=== PATIENT | male | born 1970 | race Caucasian/White ===

== ENCOUNTER 2020-10-18 15:33 | Inpatient (IN) ==
[2020-10-18] MEDS ORDERED: Acetaminophen 325 MG TABLET PO ONE (16:03)
[2020-10-18] MEDS ORDERED: Isovue-370 500 ML BOTTLE IVP ONE (16:03)
[2020-10-18] MEDS ORDERED: Ondansetron 4 MG/2 ML VIAL IVP ONE (16:21)
[2020-10-18] MEDS: 0.9 % Sodium Chloride 1,000 ML IVC ONE ×2 (16:24→16:53)
[2020-10-18 16:39] LABS: Eosinophils % 0.3 %; Immature Granulocytes % 0.3 % (0-4); Monocytes % 0.6 %; Red Blood Count 3.99 M/mcL (4.19-5.50)
[2020-10-18] MEDS ORDERED: 0.9 % Sodium Chloride 1,000 ML IVC ONE ×2 (16:40)
[2020-10-18] MEDS ORDERED: Vancomycin 1,750 MG/517.5 ML IV.SOLN IVPB ONE (16:40)
[2020-10-18] MEDS ORDERED: Piperacillin/Tazobactam 3.375 GM in 0.9 % Sodium Chloride Mini Bag 100 ML IVPB ONE (16:40)
[2020-10-18 16:41] LABS: Basophils % 0.3 %; Hematocrit 40.3 % (37.5-50.1); Immature Platelets 12.6 % (1.1-6.1); Lymphocytes # 0.3 K/mcL (0.6-4.6); Mean Corpuscular HGB Conc 34.7 g/dL (31.6-35.5); Mean Corpuscular Hemoglobin 35.1 pg (28.0-33.3); Mean Platelet Volume 13.1 fL (9.4-12.4); Neutrophils # 2.8 K/mcL (1.6-8.9); Segmented Neutrophils % 88.5 %; White Blood Count 3.2 K/mcL (4.3-11.1)
[2020-10-18 16:47] LABS: INR 1.6; Prothrombin Time 18.5 Seconds (9.4-12.1)
[2020-10-18 16:49] LABS: Activated Partial Thrombo Time 27.6 Seconds (26.0-36.0)
[2020-10-18 16:56] LABS: Alanine Aminotransferase 43 Units/L (7-52); Albumin 3.4 g/dL (3.5-5.7); Albumin/Globulin Ratio 1.2 (1.1-2.2); Alkaline Phosphatase 151 Units/L (34-104); Aspartate Amino Transferase 86 Units/L (13-39); BUN/Creatinine Ratio 9 (6-26); Bilirubin,Direct 1.3 mg/dL (0.0-0.2); Bilirubin,Indirect 2.4 mg/dL (0.0-1.0); Bilirubin,Total 3.7 mg/dL (0.3-1.0); Blood Urea Nitrogen 10 mg/dL (6-20); Calcium 8.3 mg/dL (8.6-10.3); Carbon Dioxide 20 mEq/L (23-29); Chloride 103 mEq/L (98-107); Globulin 2.9 g/dL (2.4-3.5); Glucose 108 mg/dL (70-105); Osmolality,Calculated 278 (280-300); Potassium 3.3 mEq/L (3.5-5.1); Sodium 134 mEq/L (136-145); Total Protein 6.3 g/dL (6.4-8.9); Troponin I < 0.03 ng/mL (< 0.04); eGFR For African Americans > 60 (> 60); eGFR For Non-African Americans > 60 (> 60)
[2020-10-18 17:00] LABS: Platelet Count 54 K/mcL (140-400)
[2020-10-18] MEDS ORDERED: 0.9 % Sodium Chloride 1,000 ML ONE (17:14)
[2020-10-18 18:12] LABS: Lipase 79 Units/L (11-82)
[2020-10-18] MEDS: 0.9 % Sodium Chloride 1,000 ML IVC SCH ×2 (18:42→22:31)
[2020-10-18 19:31] LABS: Amorphous Sediment,Urine Few per hpf (None-Few); Bilirubin,Urine Negative (Negative); Blood,Urine Small (Negative); Clarity,Urine Turbid (Clear); Color,Urine Yellow (Yellow); Glucose,Urine (UA) 70 mg/dL (Normal); Granular Casts,Urine Few per lpf (None Seen); Ketones,Urine Negative (Negative); Leukocyte Esterase,Urine Negative (Negative); Mucus,Urine Few per lpf (None-Few); Nitrite,Urine Negative (Negative); Protein,Urine >=300 mg/dL (Neg-Trace); Specific Gravity,Urine > 1.030 (1.010-1.025); Urobilinogen,Urine Normal (Normal); WBC,Urine 15-30 per hpf (0-3)
[2020-10-18] MEDS ORDERED: *HR* Norepinephrine 4 MG/4 ML VIAL IVC ONE (19:37)
[2020-10-18] MEDS ORDERED: 0.9 % Sodium Chloride 250 ML ONE (19:37)
[2020-10-18] MEDS ORDERED: Norepinephrine 4 MG/254 ML IV.SOLN IVC SCH (19:45)
[2020-10-18] MEDS ORDERED: Ondansetron 4 MG/2 ML VIAL IVP PRN (19:59)
[2020-10-18] MEDS ORDERED: Naloxone 0.4 MG/ML INJ IVP PRN (19:59)
[2020-10-18] MEDS ORDERED: Acetaminophen 325 MG TABLET PO PRN (19:59)
[2020-10-18] MEDS ORDERED: *HR* FentaNYL (PF) 100 MCG/2 ML VIAL IVP ONE (20:51)
[2020-10-18 21:56] LABS: Adenovirus F 40/41 PCR Not detected (Not detect); Astrovirus PCR Not detected (Not detect); C.difficile Toxin A/B Gene PCR Not detected (Not detect); Campylobacter by PCR Not detected (Not detect); Cryptosporidium by PCR Not detected (Not detect); Cyclospora cayetanensis PCR Not detected (Not detect); E. coli O157 by PCR Not detected (Not detect); Entamoeba histolytica PCR Not detected (Not detect); Enteroaggregative E.coli(EAEC) Not detected (Not detect); Enteropathogenic E.coli(EPEC) Not detected (Not detect); Enterotoxigenic E.coli (ETEC) Not detected (Not detect); Giardia lamblia PCR Not detected (Not detect); Norovirus GI/GII PCR Not detected (Not detect); Plesiomonas shigelloides PCR Not detected (Not detect); Rotavirus A PCR Not detected (Not detect); Salmonella PCR Not detected (Not detect); Sapovirus PCR Not detected (Not detect); Shig/EnteroinvasiveE coli EIEC Not detected (Not detect); Shigalike tox-prod E coli STEC Not detected (Not detect); Vibrio PCR Not detected (Not detect); Vibrio cholerae PCR Not detected (Not detect); Yersinia enterocolitica PCR Not detected (Not detect)
[2020-10-18 22:44] LABS: Adenovirus Not Detected (Not Detect); Bordetella Pertussis Not Detected (Not Detect); Chlamydophila pneumoniae Not Detected (Not Detect); Coronavirus 229E Not Detected (Not Detect); Coronavirus HKU1 Not Detected (Not Detect); Coronavirus NL63 Not Detected (Not Detect); Coronavirus OC43 Not Detected (Not Detect); Human Metapneumovirus Not Detected (Not Detect); Human Rhinovirus/Enterovirus Not Detected (Not Detect); Influenza A Subtype 2009 H1 Not Detected (Not Detect); Influenza B Not Detected (Not Detect); Mycoplasma pneumoniae Not Detected (Not Detect); Parainfluenza Virus 1 Not Detected (Not Detect); Parainfluenza Virus 2 Not Detected (Not Detect); Parainfluenza Virus 3 Not Detected (Not Detect); Parainfluenza Virus 4 Not Detected (Not Detect); Respiratory Syncytial Virus Not Detected (Not Detect); SARS-CoV-2 Not Detected (Not Detect)
[2020-10-19] MEDS: 0.9 % Sodium Chloride 1,000 ML IVC SCH ×2 (01:30→06:06)
[2020-10-19 03:10] LABS: Red Cell Distribution Width 13.6 % (11.5-14.5)
[2020-10-19 03:11] LABS: Basophils % 0.1 %; Hematocrit 33.7 % (37.5-50.1); Hemoglobin 11.6 g/dL (12.9-16.9); Immature Platelets 9.8 % (1.1-6.1); Lymphocytes # 0.2 K/mcL (0.6-4.6); Lymphocytes % 2.5 %; Mean Corpuscular HGB Conc 34.4 g/dL (31.6-35.5); Mean Corpuscular Hemoglobin 35.7 pg (28.0-33.3); Mean Corpuscular Volume 103.7 fL (83.0-100.0); Mean Platelet Volume 12.2 fL (9.4-12.4); Monocytes # 0.4 K/mcL (0.0-1.3); Monocytes % 5.7 %; Red Blood Count 3.25 M/mcL (4.19-5.50); Segmented Neutrophils % 90.7 %; White Blood Count 6.7 K/mcL (4.3-11.1)
[2020-10-19 03:17] LABS: INR 1.8; Prothrombin Time 20.8 Seconds (9.4-12.1)
[2020-10-19 03:24] LABS: Neutrophils # 6.1 K/mcL (1.6-8.9)
[2020-10-19 03:25] LABS: Magnesium 1.2 mg/dL (1.6-2.6); Phosphorous 2.7 mg/dL (2.7-4.5)
[2020-10-19 03:26] LABS: Alanine Aminotransferase 43 Units/L (7-52); Albumin 2.6 g/dL (3.5-5.7); Albumin/Globulin Ratio 1.1 (1.1-2.2); Alkaline Phosphatase 71 Units/L (34-104); Aspartate Amino Transferase 107 Units/L (13-39); Bilirubin,Direct 2.1 mg/dL (0.0-0.2); Bilirubin,Indirect 2.6 mg/dL (0.0-1.0); Bilirubin,Total 4.7 mg/dL (0.3-1.0); Globulin 2.4 g/dL (2.4-3.5); Lactate Dehydrogenase 232 Units/L (140-271); Platelet Count 29 K/mcL (140-400); Platelet Estimate Decreased (Normal)
[2020-10-19] MEDS ORDERED: Albumin Human 5% 25 GM/500 ML IV.SOLN IVPB ONE (04:18)
[2020-10-19] MEDS ORDERED: Albumin Human 5% 12.5 GM/250 ML IV.SOLN IVPB ONE (04:19)
[2020-10-19 04:52] LABS: Hepatitis B Surface Antibody < 3.10 mIU/mL
[2020-10-19] MEDS ORDERED: Vancomycin 1,500 MG/265 ML IV.SOLN IVPB SCH (05:00)
[2020-10-19 05:03] LABS: Hepatitis B Surface Antigen Nonreactive (Nonreactive)
[2020-10-19 05:18] LABS: BUN/Creatinine Ratio 11 (6-26); Blood Urea Nitrogen 16 mg/dL (6-20); Calcium 6.7 mg/dL (8.6-10.3); Carbon Dioxide 19 mEq/L (23-29); Chloride 108 mEq/L (98-107); Glucose 119 mg/dL (70-105); Osmolality,Calculated 280 (280-300); Potassium 3.5 mEq/L (3.5-5.1); Sodium 134 mEq/L (136-145); eGFR For African Americans > 60 (> 60); eGFR For Non-African Americans 52 (> 60)
[2020-10-19 05:31] LABS: Hepatitis C Virus Antibody Nonreactive (Nonreactive)
[2020-10-19 05:32] LABS: Hepatitis B Core IgM Nonreactive (Nonreactive)
[2020-10-19 05:34] LABS: Hepatitis A Antibody IgM Nonreactive (Nonreactive)
[2020-10-19] MEDS ORDERED: Piperacillin/Tazobactam 3.375 GM in 0.9 % Sodium Chloride Mini Bag 100 ML IVPB SCH (08:00)
[2020-10-19] MEDS ORDERED: Pantoprazole 40 MG VIAL IVP SCH (11:15)
[2020-10-19] MEDS ORDERED: Lactulose Oral Soln 20 GM/30 ML UDC PO SCH (13:00)
[2020-10-19] MEDS ORDERED: Naloxone 0.4 MG/ML INJ IVP PRN (14:23)
[2020-10-19] MEDS ORDERED: Ondansetron 4 MG/2 ML VIAL IVP PRN (14:23)
[2020-10-19] MEDS: Piperacillin/Tazobactam 3.375 GM in 0.9 % Sodium Chloride Mini Bag 100 ML IVPB SCH (16:04)
[2020-10-19] MEDS ORDERED: Thiamine (B-1) 100 MG, Folic Acid 1 MG, MVI, adult with vitamin K 10 ML in 0.9 % Sodi... IVPB SCH (18:00)
[2020-10-19] MEDS ORDERED: *HR* LORazepam 2 MG/ML VIAL IVP PRN (21:06)
[2020-10-20] MEDS: Piperacillin/Tazobactam 3.375 GM in 0.9 % Sodium Chloride Mini Bag 100 ML IVPB SCH ×3 (00:12→15:52)
[2020-10-20 03:13] LABS: Hemoglobin 11.9 g/dL (12.9-16.9); Mean Platelet Volume 12.4 fL (9.4-12.4)
[2020-10-20 03:15] LABS: Hematocrit 33.9 % (37.5-50.1); Immature Platelets 7.3 % (1.1-6.1); Mean Corpuscular HGB Conc 35.1 g/dL (31.6-35.5); Mean Corpuscular Hemoglobin 36.6 pg (28.0-33.3); Mean Corpuscular Volume 104.3 fL (83.0-100.0); Red Blood Count 3.25 M/mcL (4.19-5.50); Red Cell Distribution Width 13.8 % (11.5-14.5)
[2020-10-20 03:21] LABS: INR 2.3; Prothrombin Time 26.5 Seconds (9.4-12.1)
[2020-10-20 03:33] LABS: Alanine Aminotransferase 122 Units/L (7-52); Albumin 2.8 g/dL (3.5-5.7); Albumin/Globulin Ratio 1.2 (1.1-2.2); Alkaline Phosphatase 50 Units/L (34-104); Aspartate Amino Transferase 336 Units/L (13-39); BUN/Creatinine Ratio 17 (6-26); Blood Urea Nitrogen 14 mg/dL (6-20); Calcium 6.9 mg/dL (8.6-10.3); Carbon Dioxide 20 mEq/L (23-29); Chloride 109 mEq/L (98-107); Globulin 2.4 g/dL (2.4-3.5); Glucose 106 mg/dL (70-105); Osmolality,Calculated 279 (280-300); Potassium 3.3 mEq/L (3.5-5.1); Sodium 134 mEq/L (136-145); Total Protein 5.2 g/dL (6.4-8.9); eGFR For African Americans > 60 (> 60); eGFR For Non-African Americans > 60 (> 60)
[2020-10-20] MEDS: Thiamine (B-1) 100 MG TABLET PO SCH (08:43)
[2020-10-20] MEDS: Folic Acid 1 MG TABLET PO SCH (08:43)
[2020-10-20] MEDS ORDERED: Folic Acid 1 MG TABLET PO SCH (09:00)
[2020-10-20] MEDS ORDERED: Thiamine (B-1) 100 MG TABLET PO SCH (09:00)
[2020-10-20 09:27] LABS: Acinetobacter baumannii by PCR Not Detected (Not Detect); Candida albicans by PCR Not Detected (Not Detect); Candida glabrata by PCR Not Detected (Not Detect); Candida krusei by PCR Not Detected (Not Detect); Candida parapsilosis by PCR Not Detected (Not Detect); Candida tropicalis by PCR Not Detected (Not Detect); Enterobacter cloacae Cmplx PCR Not Detected (Not Detect); Enterobacteriaceae by PCR Not Detected (Not Detect); Enterococcus by PCR Not Detected (Not Detect); Escherichia coli by PCR Not Detected (Not Detect); Klebsiella oxytoca by PCR Not Detected (Not Detect); Klebsiella pneumoniae by PCR Not Detected (Not Detect); Proteus by PCR Not Detected (Not Detect); Pseudomonas aeruginosa by PCR Not Detected (Not Detect); Serratia marcescens by PCR Not Detected (Not Detect); Staphylococcus aureus by PCR Not Detected (Not Detect); Staphylococcus by PCR Not Detected (Not Detect); Streptococcus agalactiae(B)PCR Not Detected (Not Detect); Streptococcus by PCR Not Detected (Not Detect); Streptococcus pneumoniae PCR Not Detected (Not Detect); Streptococcus pyogenes (A) PCR Not Detected (Not Detect)
[2020-10-20] MEDS ORDERED: Lactulose Oral Soln 20 GM/30 ML UDC PO SCH (13:00)
[2020-10-20] MEDS ORDERED: *HR* LORazepam 2 MG/ML VIAL IVP PRN ×3 (13:23)
[2020-10-20] MEDS: Benzonatate 100 MG CAPSULE PO PRN (15:52)
[2020-10-20] MEDS: Lactulose Oral Soln 20 GM/30 ML UDC PO SCH (19:50)
[2020-10-20] MEDS: Ipratropium/Albuterol Neb 3 ML IH PRN (19:53)
[2020-10-21] MEDS: Piperacillin/Tazobactam 3.375 GM in 0.9 % Sodium Chloride Mini Bag 100 ML IVPB SCH ×4 (00:36→23:19)
[2020-10-21] MEDS: Benzonatate 100 MG CAPSULE PO PRN ×3 (00:40→15:42)
[2020-10-21 03:30] LABS: Mean Corpuscular Volume 102.6 fL (83.0-100.0)
[2020-10-21 03:32] LABS: Hematocrit 34.9 % (37.5-50.1); Immature Platelets 8.2 % (1.1-6.1); Mean Corpuscular HGB Conc 34.4 g/dL (31.6-35.5); Mean Corpuscular Hemoglobin 35.3 pg (28.0-33.3); Mean Platelet Volume 12.4 fL (9.4-12.4); Red Blood Count 3.4 M/mcL (4.19-5.50); Red Cell Distribution Width 13.6 % (11.5-14.5)
[2020-10-21 03:45] LABS: INR 2.2; Prothrombin Time 24.4 Seconds (9.4-12.1)
[2020-10-21 03:56] LABS: % Iron Saturation 47 % (20-55); Alanine Aminotransferase 122 Units/L (7-52); Albumin/Globulin Ratio 1.3 (1.1-2.2); Alkaline Phosphatase 72 Units/L (34-104); Aspartate Amino Transferase 272 Units/L (13-39); BUN/Creatinine Ratio 18 (6-26); Bilirubin,Direct 1.6 mg/dL (0.0-0.2); Bilirubin,Total 3.6 mg/dL (0.3-1.0); Blood Urea Nitrogen 11 mg/dL (6-20); Calcium 7.3 mg/dL (8.6-10.3); Carbon Dioxide 20 mEq/L (23-29); Chloride 108 mEq/L (98-107); Globulin 2.4 g/dL (2.4-3.5); Glucose 114 mg/dL (70-105); Iron 89 mcg/dL (65-175); Osmolality,Calculated 278 (280-300); Potassium 3.7 mEq/L (3.5-5.1); Sodium 134 mEq/L (136-145); Total Protein 5.4 g/dL (6.4-8.9); Transferrin 134 mg/dL (203-362); eGFR For African Americans > 60 (> 60); eGFR For Non-African Americans > 60 (> 60)
[2020-10-21 04:10] LABS: Ferritin 979 ng/mL (20-250)
[2020-10-21 04:16] LABS: Folate 17.9 ng/mL (3.0-16.0)
[2020-10-21 04:18] LABS: Vitamin B12 > 1500 pg/mL (250-1100)
[2020-10-21] MEDS: Ipratropium/Albuterol Neb 3 ML IH PRN (05:50)
[2020-10-21] MEDS: Folic Acid 1 MG TABLET PO SCH (08:15)
[2020-10-21] MEDS: Thiamine (B-1) 100 MG TABLET PO SCH (08:15)
[2020-10-21] MEDS: Lactulose Oral Soln 20 GM/30 ML UDC PO SCH ×2 (08:15→21:00)
[2020-10-21] MEDS ORDERED: Perflutren Lipid Microsphere 1.3 ML in 0.9 % Sodium Chloride 8.7 ML IVP PRN (08:24)
[2020-10-21] MEDS: Spironolactone 25 MG TABLET PO SCH (12:08)
[2020-10-22 06:04] LABS: Hemoglobin 12.1 g/dL (12.9-16.9); Mean Corpuscular Volume 102.9 fL (83.0-100.0); Red Cell Distribution Width 13.7 % (11.5-14.5)
[2020-10-22 06:06] LABS: Hematocrit 35.8 % (37.5-50.1); INR 2.1; Immature Platelets 7.8 % (1.1-6.1); Mean Corpuscular HGB Conc 33.8 g/dL (31.6-35.5); Mean Corpuscular Hemoglobin 34.8 pg (28.0-33.3); Mean Platelet Volume 11.7 fL (9.4-12.4); Prothrombin Time 23.3 Seconds (9.4-12.1); Red Blood Count 3.48 M/mcL (4.19-5.50); White Blood Count 4.4 K/mcL (4.3-11.1)
[2020-10-22 06:22] LABS: Alanine Aminotransferase 103 Units/L (7-52); Albumin/Globulin Ratio 1.3 (1.1-2.2); Alkaline Phosphatase 65 Units/L (34-104); Aspartate Amino Transferase 191 Units/L (13-39); BUN/Creatinine Ratio 13 (6-26); Bilirubin,Direct 1.2 mg/dL (0.0-0.2); Bilirubin,Indirect 2.9 mg/dL (0.0-1.0); Bilirubin,Total 4.1 mg/dL (0.3-1.0); Blood Urea Nitrogen 8 mg/dL (6-20); Calcium 7.6 mg/dL (8.6-10.3); Carbon Dioxide 21 mEq/L (23-29); Chloride 110 mEq/L (98-107); Globulin 2.4 g/dL (2.4-3.5); Glucose 96 mg/dL (70-105); Magnesium 1.6 mg/dL (1.6-2.6); Osmolality,Calculated 278 (280-300); Potassium 3.7 mEq/L (3.5-5.1); Sodium 135 mEq/L (136-145); Total Protein 5.4 g/dL (6.4-8.9); eGFR For African Americans > 60 (> 60); eGFR For Non-African Americans > 60 (> 60)
[2020-10-22] MEDS: Thiamine (B-1) 100 MG TABLET PO SCH (07:22)
[2020-10-22] MEDS: Folic Acid 1 MG TABLET PO SCH (07:22)
[2020-10-22] MEDS: Spironolactone 25 MG TABLET PO SCH (07:22)
[2020-10-22] MEDS: Lactulose Oral Soln 20 GM/30 ML UDC PO SCH ×2 (07:24→21:50)
[2020-10-22] MEDS: Piperacillin/Tazobactam 3.375 GM in 0.9 % Sodium Chloride Mini Bag 100 ML IVPB SCH ×3 (07:24→23:16)
[2020-10-22] MEDS ORDERED: Furosemide 20 MG/2 ML VIAL IVP ONE (09:06)
[2020-10-22] MEDS: valACYclovir 500 MG TABLET PO SCH ×2 (10:25→21:50)
[2020-10-23 06:18] LABS: Hematocrit 35.2 % (37.5-50.1); Hemoglobin 12.1 g/dL (12.9-16.9); Immature Platelets 7.4 % (1.1-6.1); Mean Corpuscular HGB Conc 34.4 g/dL (31.6-35.5); Mean Corpuscular Hemoglobin 35.5 pg (28.0-33.3); Mean Corpuscular Volume 103.2 fL (83.0-100.0); Mean Platelet Volume 11.5 fL (9.4-12.4); Red Blood Count 3.41 M/mcL (4.19-5.50); Red Cell Distribution Width 13.4 % (11.5-14.5); White Blood Count 3.5 K/mcL (4.3-11.1)
[2020-10-23 06:28] LABS: Alanine Aminotransferase 81 Units/L (7-52); Albumin 2.8 g/dL (3.5-5.7); Albumin/Globulin Ratio 1.2 (1.1-2.2); Alkaline Phosphatase 71 Units/L (34-104); Aspartate Amino Transferase 118 Units/L (13-39); BUN/Creatinine Ratio 15 (6-26); Bilirubin,Direct 1.7 mg/dL (0.0-0.2); Bilirubin,Indirect 2.8 mg/dL (0.0-1.0); Bilirubin,Total 4.5 mg/dL (0.3-1.0); Blood Urea Nitrogen 9 mg/dL (6-20); Calcium 7.8 mg/dL (8.6-10.3); Carbon Dioxide 22 mEq/L (23-29); Chloride 111 mEq/L (98-107); Globulin 2.4 g/dL (2.4-3.5); Glucose 106 mg/dL (70-105); Osmolality,Calculated 283 (280-300); Potassium 3.5 mEq/L (3.5-5.1); Sodium 137 mEq/L (136-145); Total Protein 5.2 g/dL (6.4-8.9); eGFR For African Americans > 60 (> 60); eGFR For Non-African Americans > 60 (> 60)
[2020-10-23 06:34] LABS: INR 2.1; Prothrombin Time 23.3 Seconds (9.4-12.1)
[2020-10-23] MEDS ORDERED: Gadolinium Contrast Agent (WT Based) IV PRN (07:44)
[2020-10-23] MEDS: Piperacillin/Tazobactam 3.375 GM in 0.9 % Sodium Chloride Mini Bag 100 ML IVPB SCH ×2 (08:22→17:03)
[2020-10-23] MEDS: Lactulose Oral Soln 20 GM/30 ML UDC PO SCH ×2 (08:23→22:07)
[2020-10-23] MEDS: Multivit/Ca/Min/Fe/FA 1 TAB TABLET PO SCH (08:24)
[2020-10-23] MEDS: Magnesium Oxide 400 MG TABLET PO SCH (08:24)
[2020-10-23] MEDS: Thiamine (B-1) 100 MG TABLET PO SCH (08:24)
[2020-10-23] MEDS: Spironolactone 25 MG TABLET PO SCH (08:24)
[2020-10-23] MEDS: valACYclovir 500 MG TABLET PO SCH ×2 (08:24→22:08)
[2020-10-23] MEDS: Folic Acid 1 MG TABLET PO SCH (08:40)
[2020-10-24] MEDS: Piperacillin/Tazobactam 3.375 GM in 0.9 % Sodium Chloride Mini Bag 100 ML IVPB SCH ×3 (00:13→17:01)
[2020-10-24 02:30] LABS: Mean Corpuscular Hemoglobin 35.4 pg (28.0-33.3); Red Cell Distribution Width 13.5 % (11.5-14.5)
[2020-10-24 02:32] LABS: Hematocrit 34.4 % (37.5-50.1); Hemoglobin 11.9 g/dL (12.9-16.9); Immature Platelets 7.2 % (1.1-6.1); Mean Corpuscular HGB Conc 34.6 g/dL (31.6-35.5); Mean Corpuscular Volume 102.4 fL (83.0-100.0); Mean Platelet Volume 12.1 fL (9.4-12.4); Red Blood Count 3.36 M/mcL (4.19-5.50); White Blood Count 3.2 K/mcL (4.3-11.1)
[2020-10-24 02:38] LABS: Prothrombin Time 22.6 Seconds (9.4-12.1)
[2020-10-24 02:48] LABS: Alanine Aminotransferase 76 Units/L (7-52); Albumin/Globulin Ratio 1.2 (1.1-2.2); Alkaline Phosphatase 78 Units/L (34-104); Aspartate Amino Transferase 100 Units/L (13-39); BUN/Creatinine Ratio 13 (6-26); Bilirubin,Direct 1.6 mg/dL (0.0-0.2); Bilirubin,Indirect 2.9 mg/dL (0.0-1.0); Bilirubin,Total 4.5 mg/dL (0.3-1.0); Blood Urea Nitrogen 9 mg/dL (6-20); Carbon Dioxide 20 mEq/L (23-29); Chloride 112 mEq/L (98-107); Globulin 2.6 g/dL (2.4-3.5); Glucose 102 mg/dL (70-105); Osmolality,Calculated 285 (280-300); Potassium 3.5 mEq/L (3.5-5.1); Sodium 138 mEq/L (136-145); Total Protein 5.6 g/dL (6.4-8.9); eGFR For African Americans > 60 (> 60); eGFR For Non-African Americans > 60 (> 60)
[2020-10-24] MEDS: Multivit/Ca/Min/Fe/FA 1 TAB TABLET PO SCH (09:13)
[2020-10-24] MEDS: Magnesium Oxide 400 MG TABLET PO SCH (09:13)
[2020-10-24] MEDS: Folic Acid 1 MG TABLET PO SCH (09:13)
[2020-10-24] MEDS: Thiamine (B-1) 100 MG TABLET PO SCH (09:13)
[2020-10-24] MEDS: Spironolactone 25 MG TABLET PO SCH (09:13)
[2020-10-24] MEDS: valACYclovir 500 MG TABLET PO SCH ×2 (09:14→19:18)
[2020-10-24] MEDS: Lactulose Oral Soln 20 GM/30 ML UDC PO SCH ×2 (09:14→19:19)
[2020-10-25] MEDS: Piperacillin/Tazobactam 3.375 GM in 0.9 % Sodium Chloride Mini Bag 100 ML IVPB SCH ×2 (00:02→09:33)
[2020-10-25 08:06] LABS: INR 1.8; Prothrombin Time 20.7 Seconds (9.4-12.1)
[2020-10-25 08:25] LABS: Basophils % 0.6 %; Hemoglobin 13.3 g/dL (12.9-16.9); Immature Granulocytes % 0.3 % (0-4); Monocytes % 7.6 %
[2020-10-25 08:27] LABS: Eosinophils # 0.1 K/mcL (0.0-0.6); Eosinophils % 3.5 %; Hematocrit 38.6 % (37.5-50.1); Immature Platelets 6.9 % (1.1-6.1); Lymphocytes # 1.3 K/mcL (0.6-4.6); Lymphocytes % 37.8 %; Mean Corpuscular HGB Conc 34.5 g/dL (31.6-35.5); Mean Corpuscular Volume 104.6 fL (83.0-100.0); Mean Platelet Volume 12.2 fL (9.4-12.4); Monocytes # 0.3 K/mcL (0.0-1.3); Neutrophils # 1.7 K/mcL (1.6-8.9); Red Blood Count 3.69 M/mcL (4.19-5.50); Red Cell Distribution Width 13.7 % (11.5-14.5); Segmented Neutrophils % 50.2 %; White Blood Count 3.4 K/mcL (4.3-11.1)
[2020-10-25 08:35] LABS: Platelet Count 59 K/mcL (140-400)
[2020-10-25 09:05] LABS: Chol/HDL Ratio 9.6 (0-4.9)
[2020-10-25 09:10] LABS: Alanine Aminotransferase 76 Units/L (7-52); Albumin 3.3 g/dL (3.5-5.7); Albumin/Globulin Ratio 1.1 (1.1-2.2); Alkaline Phosphatase 88 Units/L (34-104); Aspartate Amino Transferase 102 Units/L (13-39); BUN/Creatinine Ratio 16 (6-26); Bilirubin,Direct 1.5 mg/dL (0.0-0.2); Bilirubin,Indirect 3.2 mg/dL (0.0-1.0); Bilirubin,Total 4.7 mg/dL (0.3-1.0); Blood Urea Nitrogen 10 mg/dL (6-20); Carbon Dioxide 20 mEq/L (23-29); Chloride 110 mEq/L (98-107); Globulin 2.9 g/dL (2.4-3.5); Glucose 103 mg/dL (70-105); Magnesium 1.6 mg/dL (1.6-2.6); Osmolality,Calculated 279 (280-300); Potassium 3.8 mEq/L (3.5-5.1); Sodium 135 mEq/L (136-145); Total Protein 6.2 g/dL (6.4-8.9); eGFR For African Americans > 60 (> 60); eGFR For Non-African Americans > 60 (> 60)
[2020-10-25] MEDS: Lactulose Oral Soln 20 GM/30 ML UDC PO SCH (09:33)
[2020-10-25 09:34] LABS: Ferritin 514 ng/mL (20-250)
[2020-10-25] MEDS: Folic Acid 1 MG TABLET PO SCH (09:34)
[2020-10-25] MEDS: Multivit/Ca/Min/Fe/FA 1 TAB TABLET PO SCH (09:34)
[2020-10-25] MEDS: Spironolactone 25 MG TABLET PO SCH (09:34)
[2020-10-25] MEDS: Thiamine (B-1) 100 MG TABLET PO SCH (09:34)
[2020-10-25] MEDS: valACYclovir 500 MG TABLET PO SCH (09:34)
[2020-10-25] MEDS: Magnesium Oxide 400 MG TABLET PO SCH (09:34)
[2020-10-25 11:06] VITALS: BP 134/75
== END 2020-10-25 14:05 | disposition home or self-care (01) | DRG 871 ==
LOC: ICNU 15:33 → EMEROOARM 15:33 → ICNU 21:59 → SUATTDRO 10-19 01:21 → 2ANU 10-19 21:06
PROVIDERS: ADMIT Internal Medicine; ATTEND Pharmacist